=== PATIENT | male | born 1955 ===

== ENCOUNTER 2019-10-19 19:25 | Inpatient (IN) ==
[2019-10-19] MEDS ORDERED: ACETAMINOPHEN 500 MG TABLET PO STA (19:40)
[2019-10-19 19:58] LABS: Basophils % 0.1 % (0.0-0.8); Hematocrit 27.1 VOL% (42.0-52.0); Hemoglobin 8.5 GM/DL (14.0-18.0); Immature Granulocytes % 0.8 %; Immature Granulocytes Absolute 0.07 #; Lymphocytes # 0.3 10*3/uL (1.4-4.0); Lymphocytes % 3.7 % (21.2-54.2); Mean Corpuscular HGB Conc 31.4 GM/DL (32-36); Mean Corpuscular Volume 78.6 FL (87-102); Monocytes % 4.6 % (1.7-12.7); Neutrophils % 90.8 % (38.7-73.9); Platelet Count 308 T/CUMM (130-400); Red Blood Count 3.45 MC/CUMM (3.8-5.5); Red Cell Distribution Width 16.7 % (9.3-17.3); White Blood Count 9.2 T/CUMM (4-12)
[2019-10-19 20:33] LABS: Alanine Aminotransferase 13 U/L (16-61); Albumin 1.8 G/DL (3.4-5.0); Alkaline Phosphatase 91 U/L (45-117); Aspartate Amino Transferase 25 U/L (0-37); Bilirubin,Total < 0.39 MG/DL (0.2-1.0); Blood Urea Nitrogen 29 MG/DL (7-18); Calcium 7.8 MG/DL (8.5-10.1); Estimated Glom Filtration Rate 79 ML/MIN; Glucose 292 MG/DL (74-106); Osmolality,Calculated 278.7 MOS/KG (273-304); Total Protein 8.3 G/DL (6.4-8.3)
[2019-10-19 21:19] LABS: Band Neutrophils 1 % (0-10); Lymphocytes 5 % (20-55); Segmented Neutrophils 92 % (50-85); Total Cells Counted 100
[2019-10-19 21:20] LABS: Anisocytosis 1+; Microcytosis 1+; Platelet Estimate Normal
[2019-10-19 22:08] LABS: Apearance,Urine Slightly Hazy (Clear); Bilirubin,Urine Negative (Negative); Blood, Urine Negative (Negative); Glucose,Urine (UA) 50 mg/dL (Negative); Ketones,Urine Negative (Negative); Nitrite,Urine Negative (Negative); Protein,Urine 100 MG/DL; RBC,Urine 4 /HPF (0-4); Sperm,Urine Occasional /HPF (Negative); Squamous Epithelial Cell,Urine Occasional /HPF (0-10); Urine Color Amber (Yellow); Urine Specific Gravity 1.024 (1.001-1.035); WBC,Urine <1 /HPF (0-6)
[2019-10-19] MEDS ORDERED: IBUPROFEN 800 MG TABLET ONE (22:13)
[2019-10-19] MEDS ORDERED: IBUPROFEN 800 MG TABLET PO STA (22:23)
[2019-10-19] MEDS ORDERED: SODIUM CHLORIDE 0.9% 1,000 ML IV STA (22:23)
[2019-10-19 23:03] LABS: Barbiturates Screen,Urine Negative (Negative); Benzodiazepines Screen,Urine Negative (Negative); Cannabinoid Screen,Urine Negative (Negative); Opiate Screen,Urine Negative (Negative); Phencyclidine Screen,Urine Negative (Negative)
[2019-10-20] MEDS ORDERED: IBUPROFEN 600 MG TABLET PO PRN (01:12)
[2019-10-20] MEDS ORDERED: ONDANSETRON 4 MG/2 ML VIAL IV PRN ×2 (01:12→16:14)
[2019-10-20] MEDS ORDERED: GLUCAGON 1 MG VIAL IM PRN (01:12)
[2019-10-20] MEDS ORDERED: ACETAMINOPHEN 325 MG TABLET PO PRN (01:12)
[2019-10-20] MEDS ORDERED: DEXTROSE 50% 25 GM/50 ML VIAL IV PRN (01:12)
[2019-10-20] MEDS ORDERED: ENOXAPARIN 40 MG/0.4 ML SYRINGE SUBCUT SCH (01:30)
[2019-10-20] MEDS: INSULIN REGULAR 100 UNIT/ML SUBCUT SCH ×4 (01:36→18:39)
[2019-10-20] MEDS: MORPHINE 4 MG/1 ML VIAL IV PRN (01:58)
[2019-10-20] MEDS: PIPERACILLIN/TAZOBACTAM 3,375 MG in SODIUM CHLORIDE 0.9% 100 ML IV SCH ×3 (01:58→20:36)
[2019-10-20] MEDS: SODIUM CHLORIDE 0.9% 1,000 ML IV SCH ×2 (02:00→15:14)
[2019-10-20 05:07] LABS: Basophils % 0.2 % (0.0-0.8); Eosinophils % 0.2 % (0.00-10.9); Hematocrit 24.8 VOL% (42.0-52.0); Hemoglobin 7.7 GM/DL (14.0-18.0); Immature Granulocytes % 1.3 %; Immature Granulocytes Absolute 0.07 #; Lymphocytes # 0.6 10*3/uL (1.4-4.0); Lymphocytes % 10.2 % (21.2-54.2); Mean Corpuscular Volume 79.5 FL (87-102); Mean Platelet Volume 9.1 FL (9.6-12.0); Monocytes % 6.4 % (1.7-12.7); Neutrophils % 81.7 % (38.7-73.9); Platelet Count 257 T/CUMM (130-400); Red Blood Count 3.12 MC/CUMM (3.8-5.5); Red Cell Distribution Width 16.7 % (9.3-17.3); White Blood Count 5.5 T/CUMM (4-12)
[2019-10-20 05:24] LABS: Calcium 7.6 MG/DL (8.5-10.1); Ferritin 213.3 ng/ml (26-388); Osmolality,Calculated 282.2 MOS/KG (273-304)
[2019-10-20 05:28] LABS: Folate 14.9 NG/ML (5.4-24.0); Vitamin B12 121 PG/ML (211-911)
[2019-10-20] MEDS: VANCOMYCIN INJ 1,750 MG in SODIUM CHLORIDE 0.9% 500 ML IV SCH ×2 (05:32→18:10)
[2019-10-20 05:50] LABS: % Iron Saturation 9.8 % (18-50)
[2019-10-20 06:19] LABS: Sedimentation Rate-Westergren 129 MM/HR (0-20)
[2019-10-20 09:26] LABS: Hemoglobin A1 (Alkaline) 97.3 % (96.5-98.5); Hemoglobin A2 (Alkaline) 2.7 % (1.5-3.5)
[2019-10-20] MEDS ORDERED: LIDOCAINE 1% 20 ML VIAL ONE (14:20)
[2019-10-20] MEDS: CYANOCOBALAMIN 1000 MCG/1 ML VIAL IM SCH (15:14)
[2019-10-20] MEDS ORDERED: LIDOCAINE 2% 5 ML VIAL ONE (16:03)
[2019-10-20] MEDS ORDERED: fentaNYL 100 MCG/2 ML VIAL ONE (16:03)
[2019-10-20] MEDS ORDERED: MIDAZOLAM 2 MG/2 ML VIAL ONE (16:03)
[2019-10-20] MEDS ORDERED: PROPOFOL 200 MG/20 ML VIAL IV ONE (16:03)
[2019-10-20] MEDS ORDERED: PHENYLEPHRINE 1 MG/10 ML SYRINGE IV ONE (16:04)
[2019-10-20] MEDS ORDERED: HYDROmorphone 2 MG/1 ML VIAL ONE (16:25)
[2019-10-20] MEDS ORDERED: ONDANSETRON 4 MG/2 ML VIAL ONE (16:25)
[2019-10-20] MEDS: HYDROmorphone 2 MG/1 ML VIAL IV PRN ×2 (16:29→16:46)
[2019-10-21] MEDS: INSULIN REGULAR 100 UNIT/ML SUBCUT SCH ×5 (00:41→22:03)
[2019-10-21] MEDS: PIPERACILLIN/TAZOBACTAM 3,375 MG in SODIUM CHLORIDE 0.9% 100 ML IV SCH ×3 (00:59→17:11)
[2019-10-21] MEDS: MORPHINE 4 MG/1 ML VIAL IV PRN (00:59)
[2019-10-21 04:36] LABS: Basophils % 0.4 % (0.0-0.8); Eosinophils % 0.2 % (0.00-10.9); Hematocrit 25.3 VOL% (42.0-52.0); Hemoglobin 7.7 GM/DL (14.0-18.0); Immature Granulocytes % 0.8 %; Immature Granulocytes Absolute 0.04 #; Lymphocytes # 0.3 10*3/uL (1.4-4.0); Lymphocytes % 7.1 % (21.2-54.2); Mean Corpuscular HGB Conc 30.4 GM/DL (32-36); Mean Corpuscular Volume 80.3 FL (87-102); Mean Platelet Volume 9.2 FL (9.6-12.0); Monocytes % 8.9 % (1.7-12.7); Neutrophils % 82.6 % (38.7-73.9); Platelet Count 246 T/CUMM (130-400); Red Blood Count 3.15 MC/CUMM (3.8-5.5); Red Cell Distribution Width 16.8 % (9.3-17.3); White Blood Count 4.8 T/CUMM (4-12)
[2019-10-21 05:00] LABS: Osmolality,Calculated 289.1 MOS/KG (273-304)
[2019-10-21] MEDS: VANCOMYCIN INJ 1,750 MG in SODIUM CHLORIDE 0.9% 500 ML IV SCH ×2 (05:43→18:48)
[2019-10-21] MEDS: CYANOCOBALAMIN 1000 MCG/1 ML VIAL IM SCH (08:59)
[2019-10-21] MEDS: SODIUM CHLORIDE 0.9% 1,000 ML IV SCH ×2 (11:31→13:19)
[2019-10-21] MEDS ORDERED: LIDOCAINE 2% 5 ML VIAL ONE (12:41)
[2019-10-21] MEDS ORDERED: PROPOFOL 200 MG/20 ML VIAL IV ONE (12:41)
[2019-10-21] MEDS ORDERED: ePHEDrine 50 MG/ML AMP ONE (12:42)
[2019-10-21] MEDS ORDERED: fentaNYL 100 MCG/2 ML VIAL ONE (12:42)
[2019-10-21] MEDS ORDERED: PHENYLEPHRINE 1 MG/10 ML SYRINGE IV ONE (12:42)
[2019-10-21] MEDS ORDERED: SEVOFLURANE 1 UNIT/15 MINUTE INH ONE (12:42)
[2019-10-21] MEDS ORDERED: ETOMIDATE 40 MG/20 ML VIAL IV ONE (12:42)
[2019-10-21] MEDS ORDERED: MIDAZOLAM 2 MG/2 ML VIAL ONE (12:42)
[2019-10-21] MEDS ORDERED: DEXTROSE 10% 250 ML BAG IV PRN (13:17)
[2019-10-21] MEDS ORDERED: GLUCAGON 1 MG VIAL IM PRN (13:17)
[2019-10-21] MEDS ORDERED: SODIUM CHLORIDE 0.9% 1,000 ML IV PRN (14:08)
[2019-10-21] MEDS: MENTHOL/ZINC OXIDE OINT 71 GM JAR TOP SCH ×2 (16:34→22:03)
[2019-10-22] MEDS: PIPERACILLIN/TAZOBACTAM 3,375 MG in SODIUM CHLORIDE 0.9% 100 ML IV SCH ×3 (01:42→20:41)
[2019-10-22 04:42] LABS: Basophils % 0.3 % (0.0-0.8); Eosinophils # 0.1 10*3/uL (0.0-0.87); Eosinophils % 2.7 % (0.00-10.9); Hematocrit 25.1 VOL% (42.0-52.0); Hemoglobin 7.8 GM/DL (14.0-18.0); Immature Granulocytes % 0.6 %; Immature Granulocytes Absolute 0.02 #; Lymphocytes # 0.7 10*3/uL (1.4-4.0); Lymphocytes % 19.8 % (21.2-54.2); Mean Corpuscular HGB Conc 31.1 GM/DL (32-36); Mean Corpuscular Volume 80.2 FL (87-102); Mean Platelet Volume 9.3 FL (9.6-12.0); Monocytes % 14.4 % (1.7-12.7); Neutrophils % 62.2 % (38.7-73.9); Platelet Count 235 T/CUMM (130-400); Red Blood Count 3.13 MC/CUMM (3.8-5.5); Red Cell Distribution Width 16.6 % (9.3-17.3); White Blood Count 3.3 T/CUMM (4-12)
[2019-10-22] MEDS: SODIUM CHLORIDE 0.9% 1,000 ML IV SCH (07:33)
[2019-10-22 08:47] LABS: Basophils % 0.6 % (0.0-0.8); Eosinophils # 0.1 10*3/uL (0.0-0.87); Eosinophils % 3.1 % (0.00-10.9); Hemoglobin 7.9 GM/DL (14.0-18.0); Immature Granulocytes % 0.6 %; Immature Granulocytes Absolute 0.02 #; Lymphocytes # 0.7 10*3/uL (1.4-4.0); Lymphocytes % 22.6 % (21.2-54.2); Mean Corpuscular HGB Conc 31.6 GM/DL (32-36); Mean Corpuscular Volume 79.1 FL (87-102); Mean Platelet Volume 9.2 FL (9.6-12.0); Monocytes % 13.3 % (1.7-12.7); Neutrophils % 59.8 % (38.7-73.9); Platelet Count 234 T/CUMM (130-400); Red Blood Count 3.16 MC/CUMM (3.8-5.5); Red Cell Distribution Width 16.6 % (9.3-17.3); White Blood Count 3.2 T/CUMM (4-12)
[2019-10-22] MEDS: CYANOCOBALAMIN 1000 MCG/1 ML VIAL IM SCH (09:01)
[2019-10-22] MEDS: INSULIN REGULAR 100 UNIT/ML SUBCUT SCH ×4 (09:04→21:58)
[2019-10-22] MEDS ORDERED: SODIUM CHLORIDE 0.9% 1,000 ML IV PRN (09:07)
[2019-10-22 09:33] LABS: Band Neutrophils 3 % (0-10); Eosinophils 4 % (0-10); Hypochromasia 1+; Lymphocytes 24 % (20-55); Microcytosis 1+; Platelet Estimate Normal; Segmented Neutrophils 57 % (50-85); Total Cells Counted 100
[2019-10-22 10:12] LABS: Calcium 7.7 MG/DL (8.5-10.1); Osmolality,Calculated 288.8 MOS/KG (273-304)
[2019-10-22] MEDS: MENTHOL/ZINC OXIDE OINT 71 GM JAR TOP SCH ×2 (10:15→21:59)
[2019-10-22] MEDS: MORPHINE 4 MG/1 ML VIAL IV PRN ×2 (10:15→20:41)
[2019-10-22] MEDS: SODIUM HYPOCHLORITE 0.25% IRRIG 473 ML BOTTLE TOP SCH (10:16)
[2019-10-22] MEDS: VANCOMYCIN INJ 1,750 MG in SODIUM CHLORIDE 0.9% 500 ML IV SCH (17:06)
[2019-10-22] MEDS: INSULIN GLARGINE 100 UNIT/ML SUBCUT SCH (17:22)
[2019-10-22 18:21] LABS: Hematocrit 30.7 VOL% (42.0-52.0); Hemoglobin 9.8 GM/DL (14.0-18.0)
[2019-10-23] MEDS: PIPERACILLIN/TAZOBACTAM 3,375 MG in SODIUM CHLORIDE 0.9% 100 ML IV SCH ×2 (02:11→08:43)
[2019-10-23 05:04] LABS: Basophils % 0.4 % (0.0-0.8); Eosinophils # 0.2 10*3/uL (0.0-0.87); Eosinophils % 4.3 % (0.00-10.9); Hematocrit 30.9 VOL% (42.0-52.0); Immature Granulocytes % 0.7 %; Immature Granulocytes Absolute 0.03 #; Lymphocytes # 0.9 10*3/uL (1.4-4.0); Mean Corpuscular HGB Conc 32.4 GM/DL (32-36); Mean Corpuscular Volume 80.5 FL (87-102); Mean Platelet Volume 9.1 FL (9.6-12.0); Monocytes % 11.6 % (1.7-12.7); Platelet Count 249 T/CUMM (130-400); Red Blood Count 3.84 MC/CUMM (3.8-5.5); White Blood Count 4.5 T/CUMM (4-12)
[2019-10-23 05:31] LABS: Calcium 7.7 MG/DL (8.5-10.1); Osmolality,Calculated 282.8 MOS/KG (273-304)
[2019-10-23] MEDS: SODIUM CHLORIDE 0.9% 1,000 ML IV SCH ×2 (07:35→08:43)
[2019-10-23] MEDS: SODIUM HYPOCHLORITE 0.25% IRRIG 473 ML BOTTLE TOP SCH (08:41)
[2019-10-23] MEDS: INSULIN GLARGINE 100 UNIT/ML SUBCUT SCH (08:41)
[2019-10-23] MEDS: INSULIN REGULAR 100 UNIT/ML SUBCUT SCH ×4 (08:42→21:14)
[2019-10-23] MEDS: MENTHOL/ZINC OXIDE OINT 71 GM JAR TOP SCH ×2 (08:42→23:24)
[2019-10-23] MEDS: CYANOCOBALAMIN 1000 MCG/1 ML VIAL IM SCH (08:42)
[2019-10-23] MEDS: MORPHINE 4 MG/1 ML VIAL IV PRN (08:44)
[2019-10-23] MEDS ORDERED: LACTATED RINGERS 1,000 ML IV SCH (11:00)
[2019-10-23] MEDS ORDERED: PROPOFOL 200 MG/20 ML VIAL IV ONE (12:41)
[2019-10-23] MEDS ORDERED: LIDOCAINE 2% 5 ML VIAL ONE (12:41)
[2019-10-23] MEDS ORDERED: fentaNYL 100 MCG/2 ML VIAL ONE (12:42)
[2019-10-23] MEDS ORDERED: SUCCINYLCHOLINE 200 MG/10 ML VIAL ONE (12:42)
[2019-10-23] MEDS ORDERED: GLYCOPYRROLATE 0.4 MG/2 ML VIAL ONE (12:42)
[2019-10-23] MEDS ORDERED: PHENYLEPHRINE 1 MG/10 ML SYRINGE IV ONE (12:42)
[2019-10-23] MEDS ORDERED: ETOMIDATE 40 MG/20 ML VIAL IV ONE (12:42)
[2019-10-23] MEDS ORDERED: ONDANSETRON 4 MG/2 ML VIAL ONE ×2 (12:42→12:53)
[2019-10-23] MEDS ORDERED: ONDANSETRON 4 MG/2 ML VIAL IV PRN (12:51)
[2019-10-23] MEDS ORDERED: HYDROmorphone 2 MG/1 ML VIAL IV PRN ×2 (12:51→14:08)
[2019-10-23] MEDS ORDERED: MORPHINE 10 MG/1 ML VIAL ONE (12:56)
[2019-10-23] MEDS: MORPHINE 10 MG/1 ML VIAL IV PRN ×5 (12:58→13:22)
[2019-10-23] MEDS ORDERED: ALBUTEROL/IPRATROPIUM 3 ML NEB RESP TX PRN (14:06)
[2019-10-23] MEDS: VANCOMYCIN INJ 1,750 MG in SODIUM CHLORIDE 0.9% 500 ML IV SCH (14:11)
[2019-10-23] MEDS ORDERED: MAGNESIUM SULF RIDER 2 GM in PREMIX 1 EACH IV ONE (15:03)
[2019-10-23] MEDS: cefTRIAXone 2,000 MG in SYRINGE 1 EACH IV SCH (15:04)
[2019-10-23] MEDS: INSULIN LISPRO 100 UNIT/ML SUBCUT SCH ×2 (16:17→21:14)
[2019-10-23] MEDS: HYDROmorphone 2 MG/1 ML VIAL IV PRN ×2 (17:38→21:15)
[2019-10-24] MEDS: VANCOMYCIN INJ 1,750 MG in SODIUM CHLORIDE 0.9% 500 ML IV SCH (06:02)
[2019-10-24 06:36] LABS: Basophils % 0.1 % (0.0-0.8); Eosinophils # 0.1 10*3/uL (0.0-0.87); Eosinophils % 1.4 % (0.00-10.9); Hemoglobin 9.9 GM/DL (14.0-18.0); Immature Granulocytes % 1.3 %; Immature Granulocytes Absolute 0.12 #; Lymphocytes # 0.7 10*3/uL (1.4-4.0); Lymphocytes % 7.5 % (21.2-54.2); Mean Corpuscular HGB Conc 31.9 GM/DL (32-36); Mean Corpuscular Volume 80.5 FL (87-102); Mean Platelet Volume 8.8 FL (9.6-12.0); Monocytes % 8.5 % (1.7-12.7); Neutrophils % 81.2 % (38.7-73.9); Platelet Count 234 T/CUMM (130-400); Red Blood Count 3.85 MC/CUMM (3.8-5.5); Red Cell Distribution Width 16.1 % (9.3-17.3); White Blood Count 9.1 T/CUMM (4-12)
[2019-10-24 06:53] LABS: Calcium 8.1 MG/DL (8.5-10.1)
[2019-10-24] MEDS: HYDROmorphone 2 MG/1 ML VIAL IV PRN ×2 (07:56→15:45)
[2019-10-24] MEDS: CYANOCOBALAMIN 1000 MCG/1 ML VIAL IM SCH (09:35)
[2019-10-24] MEDS: INSULIN GLARGINE 100 UNIT/ML SUBCUT SCH (09:35)
[2019-10-24] MEDS: amLODIPine 5 MG TABLET PO SCH (09:35)
[2019-10-24] MEDS: INSULIN REGULAR 100 UNIT/ML SUBCUT SCH ×4 (09:36→21:07)
[2019-10-24] MEDS: MENTHOL/ZINC OXIDE OINT 71 GM JAR TOP SCH ×2 (09:37→21:08)
[2019-10-24] MEDS: INSULIN LISPRO 100 UNIT/ML SUBCUT SCH ×4 (09:37→21:07)
[2019-10-24] MEDS: SODIUM HYPOCHLORITE 0.25% IRRIG 473 ML BOTTLE TOP SCH (09:38)
[2019-10-24] MEDS: cefTRIAXone 2,000 MG in SYRINGE 1 EACH IV SCH (15:45)
[2019-10-25] MEDS: HYDROmorphone 2 MG/1 ML VIAL IV PRN ×2 (00:01→12:15)
[2019-10-25 05:05] LABS: Basophils % 0.2 % (0.0-0.8); Eosinophils # 0.1 10*3/uL (0.0-0.87); Eosinophils % 1.7 % (0.00-10.9); Hematocrit 29.6 VOL% (42.0-52.0); Hemoglobin 9.3 GM/DL (14.0-18.0); Immature Granulocytes % 0.7 %; Immature Granulocytes Absolute 0.06 #; Lymphocytes # 0.9 10*3/uL (1.4-4.0); Lymphocytes % 11.3 % (21.2-54.2); Mean Corpuscular HGB Conc 31.4 GM/DL (32-36); Mean Corpuscular Volume 81.3 FL (87-102); Mean Platelet Volume 8.6 FL (9.6-12.0); Monocytes % 11.2 % (1.7-12.7); Neutrophils % 74.9 % (38.7-73.9); Platelet Count 226 T/CUMM (130-400); Red Blood Count 3.64 MC/CUMM (3.8-5.5); Red Cell Distribution Width 16.1 % (9.3-17.3); White Blood Count 8.1 T/CUMM (4-12)
[2019-10-25 05:32] LABS: Calcium 8.2 MG/DL (8.5-10.1); Osmolality,Calculated 275.8 MOS/KG (273-304)
[2019-10-25] MEDS: VANCOMYCIN INJ 1,750 MG in SODIUM CHLORIDE 0.9% 500 ML IV SCH (07:39)
[2019-10-25] MEDS: amLODIPine 5 MG TABLET PO SCH (08:44)
[2019-10-25] MEDS: CYANOCOBALAMIN 1000 MCG/1 ML VIAL IM SCH (08:44)
[2019-10-25] MEDS: INSULIN LISPRO 100 UNIT/ML SUBCUT SCH ×4 (08:45→20:43)
[2019-10-25] MEDS: INSULIN GLARGINE 100 UNIT/ML SUBCUT SCH (08:45)
[2019-10-25] MEDS: SODIUM HYPOCHLORITE 0.25% IRRIG 473 ML BOTTLE TOP SCH (08:46)
[2019-10-25] MEDS: MENTHOL/ZINC OXIDE OINT 71 GM JAR TOP SCH ×2 (08:46→20:43)
[2019-10-25] MEDS: INSULIN REGULAR 100 UNIT/ML SUBCUT SCH ×4 (09:15→20:43)
[2019-10-25] MEDS: cefTRIAXone 2,000 MG in SYRINGE 1 EACH IV SCH (16:43)
[2019-10-26 06:14] LABS: Basophils % 0.3 % (0.0-0.8); Eosinophils # 0.2 10*3/uL (0.0-0.87); Eosinophils % 2.9 % (0.00-10.9); Hematocrit 27.5 VOL% (42.0-52.0); Hemoglobin 8.8 GM/DL (14.0-18.0); Immature Granulocytes % 0.9 %; Immature Granulocytes Absolute 0.07 #; Lymphocytes % 12.9 % (21.2-54.2); Mean Corpuscular Volume 81.4 FL (87-102); Mean Platelet Volume 9.3 FL (9.6-12.0); Monocytes % 10.4 % (1.7-12.7); Neutrophils % 72.6 % (38.7-73.9); Platelet Count 260 T/CUMM (130-400); Red Blood Count 3.38 MC/CUMM (3.8-5.5); Red Cell Distribution Width 16.1 % (9.3-17.3); White Blood Count 7.9 T/CUMM (4-12)
[2019-10-26 06:25] LABS: Calcium 8.2 MG/DL (8.5-10.1); Osmolality,Calculated 277.8 MOS/KG (273-304)
[2019-10-26] MEDS: VANCOMYCIN INJ 1,750 MG in SODIUM CHLORIDE 0.9% 500 ML IV SCH (08:26)
[2019-10-26] MEDS: amLODIPine 5 MG TABLET PO SCH (08:27)
[2019-10-26] MEDS: CYANOCOBALAMIN 1000 MCG/1 ML VIAL IM SCH (08:28)
[2019-10-26] MEDS: INSULIN GLARGINE 100 UNIT/ML SUBCUT SCH (08:28)
[2019-10-26] MEDS: INSULIN LISPRO 100 UNIT/ML SUBCUT SCH ×4 (08:28→22:20)
[2019-10-26] MEDS: INSULIN REGULAR 100 UNIT/ML SUBCUT SCH ×4 (08:33→22:19)
[2019-10-26] MEDS: MENTHOL/ZINC OXIDE OINT 71 GM JAR TOP SCH ×2 (09:15→22:20)
[2019-10-26] MEDS: SODIUM HYPOCHLORITE 0.25% IRRIG 473 ML BOTTLE TOP SCH (09:15)
[2019-10-26] MEDS: cefTRIAXone 2,000 MG in SYRINGE 1 EACH IV SCH (16:20)
[2019-10-27 04:59] LABS: Basophils % 0.3 % (0.0-0.8); Eosinophils # 0.2 10*3/uL (0.0-0.87); Hematocrit 27.6 VOL% (42.0-52.0); Hemoglobin 8.6 GM/DL (14.0-18.0); Immature Granulocytes % 0.7 %; Immature Granulocytes Absolute 0.05 #; Lymphocytes % 12.8 % (21.2-54.2); Mean Corpuscular HGB Conc 31.2 GM/DL (32-36); Mean Corpuscular Volume 81.2 FL (87-102); Monocytes % 10.8 % (1.7-12.7); Neutrophils % 72.4 % (38.7-73.9); Platelet Count 327 T/CUMM (130-400); Red Cell Distribution Width 16.1 % (9.3-17.3); White Blood Count 7.4 T/CUMM (4-12)
[2019-10-27 05:17] LABS: Calcium 8.2 MG/DL (8.5-10.1); Osmolality,Calculated 283.5 MOS/KG (273-304)
[2019-10-27] MEDS: amLODIPine 5 MG TABLET PO SCH (09:05)
[2019-10-27] MEDS: CYANOCOBALAMIN 1000 MCG/1 ML VIAL IM SCH (09:05)
[2019-10-27] MEDS: FERROUS SULFATE 325 MG TABLET PO SCH (09:05)
[2019-10-27] MEDS: INSULIN GLARGINE 100 UNIT/ML SUBCUT SCH (09:05)
[2019-10-27] MEDS: INSULIN LISPRO 100 UNIT/ML SUBCUT SCH ×4 (09:06→22:25)
[2019-10-27] MEDS: INSULIN REGULAR 100 UNIT/ML SUBCUT SCH ×4 (09:06→22:26)
[2019-10-27] MEDS: SODIUM HYPOCHLORITE 0.25% IRRIG 473 ML BOTTLE TOP SCH (09:15)
[2019-10-27] MEDS: MENTHOL/ZINC OXIDE OINT 71 GM JAR TOP SCH ×2 (09:15→22:25)
[2019-10-27] MEDS: VANCOMYCIN INJ 1,750 MG in SODIUM CHLORIDE 0.9% 500 ML IV SCH (09:15)
[2019-10-27] MEDS: ENOXAPARIN 40 MG/0.4 ML SYRINGE SUBCUT SCH (15:31)
[2019-10-27] MEDS: cefTRIAXone 2,000 MG in SYRINGE 1 EACH IV SCH (15:35)
[2019-10-28] MEDS: ENOXAPARIN 40 MG/0.4 ML SYRINGE SUBCUT SCH (08:51)
[2019-10-28] MEDS: FERROUS SULFATE 325 MG TABLET PO SCH (08:52)
[2019-10-28] MEDS: INSULIN GLARGINE 100 UNIT/ML SUBCUT SCH (08:52)
[2019-10-28] MEDS: INSULIN LISPRO 100 UNIT/ML SUBCUT SCH ×2 (08:52→12:26)
[2019-10-28] MEDS: INSULIN REGULAR 100 UNIT/ML SUBCUT SCH ×2 (08:52→12:26)
[2019-10-28] MEDS: SODIUM HYPOCHLORITE 0.25% IRRIG 473 ML BOTTLE TOP SCH (08:53)
[2019-10-28] MEDS: MENTHOL/ZINC OXIDE OINT 71 GM JAR TOP SCH (08:53)
[2019-10-28] MEDS: CYANOCOBALAMIN 1000 MCG/1 ML VIAL IM SCH (08:53)
[2019-10-28] MEDS: amLODIPine 5 MG TABLET PO SCH (08:53)
[2019-10-28] MEDS: VANCOMYCIN INJ 1,750 MG in SODIUM CHLORIDE 0.9% 500 ML IV SCH (08:57)
[2019-10-28 12:35] VITALS: BP 91/43
== END 2019-10-28 13:27 | DRG 305 ==
LOC: EDUNIT# → EDBD → N.ED 19:25 → N.EDINP 22:34 → SUATTDRO 22:34 → N.3E 23:48 → N.TELEN 10-20 00:25 → N.5E 10-23 18:23
PROVIDERS: ADMIT Internal Medicine; ATTEND Internal Medicine Cardiovascular Disease